=== PATIENT | male | born 1945 | race Caucasian/White ===

== ENCOUNTER 2020-04-23 05:55 | Outpatient (CLI) | payer MEDICARE, OTHER ==
--- NOTE | 2020-04-23 10:51 | RAD ---
EXAM: Chest 2 views: HISTORY: Preoperative radiograph COMPARISON: 08/20/2016 FINDINGS: There is a normal-sized cardiomediastinal silhouette. The patient is status post sternotomy. There is no evidence of consolidation, mass, or pleural effusion. The bones are unremarkable. IMPRESSION: No evidence of acute cardiopulmonary disease
[2020-04-23 14:06] LABS: Hemoglobin 13.6 g/dL (14.0-18.0); Mean Corpuscular HGB CONC 33.2 g/dL (32.0-36.0); Mean Corpuscular Hemoglobin 31.4 pg (27.0-31.0); Mean Corpuscular Volume 94.6 fL (78.0-98.0); Mean Platelet Volume 9.5 fL (7.4-10.4); Platelet Count 156 thou/uL (130-400); RBC Distribution Width 12.4 % (11.5-14.5); Red Blood Cell (RBC) Count 4.34 mill/uL (4.70-6.10); White Blood Cell (WBC) Count 7.5 thou/uL (4.8-10.8)
[2020-04-23 14:15] LABS: PTT 32.5 sec (22.9-36.1); Prothrombin Time 13.3 sec (12.0-14.7)
[2020-04-23 14:21] LABS: Anion Gap 10 mmol/L (10-20); BUN (Urea Nitrogen) 17 mg/dL (8.4-25.7); Calc. Creatinine Clearance 0 mL/min (70-130); Calcium 8.9 mg/dL (7.8-10.44); Carbon Dioxide 27 mmol/L (23-31); Chloride 105 mmol/L (98-107); Estimated GFR-MDRD 79; Glucose 89 mg/dL (83-110); Potassium 4.7 mmol/L (3.5-5.1); Sodium 137 mmol/L (136-145)
[2020-04-23 14:38] LABS: Bacteria/HPF None Seen HPF (None Seen); Bilirubin Negative (Negative); Blood, Urine Negative (Negative); Clarity Clear (Clear); Glucose, Urine (Dipstick) Normal (Negative); Leukocyte Negative Leu/uL (Negative); Nitrite Negative (Negative); Protein, Urine (Dipstick) Negative (Neg-Trace); RBC/HPF 0-3 HPF (0-3); Squamous Epithelial None Seen HPF (0-3); Urobilinogen Normal mg/dL (Less than 2); WBC/HPF 0-3 HPF (0-3)
[2020-04-24 13:46] LABS: SARS-CoV-2 MS2 Positive; SARS-CoV-2 N Gene Negative; SARS-CoV-2 S Gene Negative; SARS-CoV-2 orf1ab Negative
== END 2020-04-23 05:56 | disposition home or self-care (01) ==
LOC: LABBT 05:55
PROVIDERS: ATTEND Urology
DX: Z01.812 Encounter for preprocedural laboratory examination (principal); Z11.59 Encounter for screening for other viral diseases; Z12.5 Encounter for screening for malignant neoplasm of prostate; N43.3 Hydrocele, unspecified; N13.8 Other obstructive and reflux uropathy; N40.1 Benign prostatic hyperplasia with lower urinary tract symptoms; R39.14 Feeling of incomplete bladder emptying; I35.1 Nonrheumatic aortic (valve) insufficiency
CPT/HCPCS: 71046; 80048; 81001; 85027; 85610; 85730; 87086; U0003; 87635; 93005; 93010

== ENCOUNTER 2020-04-26 07:59 | Day surgery (SDC) | payer MEDICARE, OTHER ==
[2020-04-20 11:02] VITALS: BMI 25.5
[2020-04-26] MEDS ORDERED: Dexamethasone 20 MG/5 ML VIAL ONE (10:20)
[2020-04-26] MEDS ORDERED: EPHEDRINE 25 MG/5 ML SYRINGE ONE (10:20)
[2020-04-26] MEDS ORDERED: Ondansetron PF 4 MG/2 ML Vial ONE (10:20)
[2020-04-26] MEDS ORDERED: Lidocaine 1% PF 5 ML VIAL ONE (10:20)
[2020-04-26] MEDS ORDERED: PROPOFOL 200 MG/20 ML VIAL ONE (10:20)
[2020-04-26] MEDS ORDERED: Bupivacaine 0.25% HCL 30 ML VIAL ONE (10:23)
[2020-04-26] MEDS ORDERED: Lidocaine 1% w/Epinephrine 1:100K 20 ML VIAL ONE (10:23)
[2020-04-26] MEDS ORDERED: Fentanyl 100 MCG/2 ML VIAL ONE (10:28)
--- NOTE | 2020-04-26 13:29 | OP ---
DATE OF PROCEDURE: 04/26/2020 SERVICE: Urology. PREOPERATIVE DIAGNOSIS: Left hydrocele. POSTOPERATIVE DIAGNOSIS: Left hydrocele. PROCEDURE PERFORMED: Left hydrocelectomy in the Jaboulay fashion. INDICATIONS FOR PROCEDURE: Mr. Cornejo is a 74-year-old white male, who presented to me with a bothersome left hydrocele. Ultrasound did not show any underlying abnormalities and this did appear to be a noncommunicating hydrocele. After discussion of risks and benefits, he wished to proceed forward with the hydrocelectomy. DESCRIPTION OF PROCEDURE: After identification of armband and verification of consent, the patient was brought back to the operating room, where he underwent general anesthesia with an LMA. He was then left in the supine position and prepped and draped in usual sterile fashion. After appropriate time-out, an incision was made along one of the scrotal folds on the left anterior scrotum toward the upper part of the scrotum. Dissection was carried through the dartos and external spermatic fascia using Bovie electrocautery and sharp dissection. The external and internal spermatic fascia were then dissected up to the tunica vaginalis. At this point, a dissection plane was made just outside the hydrocele sac circumferentially until approximately half the hydrocele was dissected. The hydrocele was then able to be delivered through the incision line and brought to the outside. The remainder of the surrounding tissues were then mobilized until the hydrocele sac and the cord were the only structures visible. The hydrocele sac was opened anteriorly with release of a large amount of straw-colored fluid. This was evacuated completely. There was no foul odor or turbulence to the fluid. There were 2 hydrocele pearls within the hydrocele sac, which were removed. The appendix testis was also removed and discarded. The hydrocele sac was then opened thoroughly and the testis did appear normal without any abnormalities. The epididymis also appeared normal. The redundant hydrocele sac was then excised using Bovie electrocautery taking care not to be too close to the testicle or spermatic cord or the epididymis. The remainder of the tunica vaginalis was then marsupialized on the posterior aspect of the testicle, taking care again not to place the sutures near the epididymis for pain. Meticulous hemostasis was performed along all the edges of the tunica vaginalis and inside the scrotum and to any area that appeared to be bleeding until there was complete hemostasis, nothing visibly oozing. The inferior aspect of the scrotum was then opened using a cutting current on the Bovie for a small incision and then a hemostat passed through to guide a Carlos drain into the scrotal space. The superior aspect of the Carlos drain was affixed to the inside of the spermatic fascia extremely small amount of tissue this could be pulled free later, but will prevent drain from falling out accidentally. The redundant drain was then excised on the exterior of the scrotum and a 3-0 nylon used to secure the drain. The scrotum was then copiously irrigated along with the testicle and a cord block performed with 0.25% Marcaine plain. The testis was then re-delivered back into the scrotum. The dartos and spermatic fascia were then closed using a 2-0 Vicryl in a running fashion. The skin was closed with a 4-0 Monocryl in a running fashion. The drain exit site and the incision were infiltrated with 0.25% Marcaine plain for a total of 20 mL used for both the cord block and all incisions. Dermabond was applied on the incision, and once dried, scrotal fluffs and a jockstrap were applied. The patient was then awakened and taken to PACU for recovery in stable condition. COMPLICATIONS: None. ESTIMATED BLOOD LOSS: Minimal. RETAINED TUBES AND DRAINS: 0.25-inch Carlos drain. SPECIMENS: Hydrocele sac. DISPOSITION: The patient will be discharged home and follow up with me in approximately 1 week for possible drain removal and postop check. Job ID: [id number]
== END 2020-04-26 13:42 | disposition home or self-care (01) ==
LOC: SDC 07:59
PROVIDERS: ATTEND Urology
PROC: 0VB70ZZ Excision of Left Tunica Vaginalis, Open Approach (ICD-10-PCS; principal; 2020-04-26)
DX: N43.3 Hydrocele, unspecified (principal); J44.9 Chronic obstructive pulmonary disease, unspecified; I10 Essential (primary) hypertension; E78.5 Hyperlipidemia, unspecified; G47.30 Sleep apnea, unspecified; N40.0 Benign prostatic hyperplasia without lower urinary tract symptoms; Z87.891 Personal history of nicotine dependence; Z79.82 Long term (current) use of aspirin; Z79.899 Other long term (current) drug therapy; Z95.2 Presence of prosthetic heart valve
CPT/HCPCS: 88302; J0690; J1100; J2001; J2405; J2704; J3010; S0020

== ENCOUNTER 2021-01-05 00:11 | Inpatient (IN) | payer MEDICARE, OTHER ==
[2021-01-05 00:28] LABS: Hemoglobin 13.2 g/dL (14.0-18.0); Mean Corpuscular Hemoglobin 31.6 pg (27.0-31.0); Mean Corpuscular Volume 98.9 fL (78.0-98.0); Mean Platelet Volume 9.1 fL (7.4-10.4); Platelet Count 192 thou/uL (130-400); RBC Distribution Width 12.4 % (11.5-14.5); Red Blood Cell (RBC) Count 4.18 mill/uL (4.70-6.10); White Blood Cell (WBC) Count 23.2 thou/uL (4.8-10.8)
[2021-01-05 00:32] LABS: INR-International Normal Ratio 1.4; Prothrombin Time 17.1 sec (12.0-14.7)
[2021-01-05 00:48] LABS: Band 2 % (5-11); Hypochromia SLIGHT = 6-15 cells (100X) (0-5/hpf); Lymphocytes 42 % (21-51); MDiff Complete? YES; Monocytes 7 % (0-10); Neutrophil 49 % (42-75); Platelet Morphology Comment Appears Adequate
[2021-01-05 00:59] LABS: ALT (SGPT) 33 U/L (8-55); AST (SGOT) 63 U/L (5-34); Albumin 3.3 g/dL (3.4-4.8); Alkaline Phosphatase 50 U/L (40-110); Anion Gap 26 mmol/L (10-20); BUN (Urea Nitrogen) 21 mg/dL (8.4-25.7); Bilirubin, Total 0.4 mg/dL (0.2-1.2); Calc. Creatinine Clearance 0 mL/min (70-130); Calcium 7.5 mg/dL (7.8-10.44); Carbon Dioxide 12 mmol/L (23-31); Chloride 106 mmol/L (98-107); Glucose 207 mg/dL (83-110); Protein, Total 6.3 g/dL (5.8-8.1); Sodium 139 mmol/L (136-145)
[2021-01-05] MEDS ORDERED: Sodium Bicarb 50 MEQ/50 ML Abboject 8.4% SYRINGE ONE (01:00)
[2021-01-05] MEDS ORDERED: Iopamidol 370 76% 50 ML VIAL FS ONE (01:00)
[2021-01-05] MEDS ORDERED: EPINEPHrine 1 MG/10 ML Abboject SYRINGE ONE (01:00)
[2021-01-05] MEDS ORDERED: Calcium Chloride 1 GM/10 ML Abboject SYRINGE ONE (01:00)
[2021-01-05] MEDS ORDERED: Iopamidol 370 76% 100 ML VIAL ONE (01:00)
[2021-01-05 01:13] LABS: CKMB 12.3 ng/mL (0-6.6)
[2021-01-05] MEDS ORDERED: Milk Of Magnesia 30 ML UDCUP PO PRN (01:48)
[2021-01-05] MEDS ORDERED: Morphine 2 MG/ML VIAL SLOW IVP PRN ×3 (01:48→03:00)
[2021-01-05] MEDS ORDERED: Acetaminophen/Codeine 30-300mg Tablet PO PRN (01:48)
[2021-01-05] MEDS ORDERED: Nitroglycerin 0.4 MG TAB (25 Tab Bottle) SL PRN (01:48)
[2021-01-05] MEDS ORDERED: Zolpidem Tartrate 5 MG TAB PO PRN (01:48)
[2021-01-05] MEDS ORDERED: Aspirin Chewable 81 MG TAB PO SCH ×2 (02:00→09:00)
[2021-01-05] MEDS ORDERED: Aggrastat 12.5 MG/250 ML 250 ML IVPB SCH ×2 (02:00)
[2021-01-05] MEDS ORDERED: Sodium Chloride 0.9% 1,000 ML IV SCH (02:00)
[2021-01-05 02:16] LABS: Base Excess (BEa) -11.2 mEq/L (-2.0 to +3.0); CO2 Tension 55.2 mmHg (35.0-45.0); Carboxyhemoglobin (COHb) 0.9 gm% (0.0-3.0); Hemoglobin (Hb) 12.6 g/dL (14.0-18.0); Potassium - ABG Lab 4.83 mmol/L (3.70-5.30)
[2021-01-05 02:27] LABS: O2 Tension (PaO2), arterial 45.3 mmHg (> 70.0); pH, Arterial 7.13 (7.35-7.45)
[2021-01-05 02:28] LABS: Puncture Site RBA
[2021-01-05 02:39] VITALS: BP 80/49
[2021-01-05] MEDS: Sodium Bicarb 50 MEQ/50 ML Abboject 8.4% SYRINGE ONE ×2 (02:43→02:55)
[2021-01-05] MEDS ORDERED: Propofol BOLUS 1,000 MG/100 ML VIAL IV PRN (03:00)
[2021-01-05] MEDS ORDERED: DISCONTINUE PREVIOUS NARCOTIC PAIN MEDICATIONS AND BENZODIAZEPINES FS SCH (03:00)
[2021-01-05] MEDS ORDERED: Amiodarone 450 MG, Admixture Fee 1 EACH in Dextrose 5% in Water 250 ML IVPB SCH (03:00)
[2021-01-05] MEDS ORDERED: Propofol 1,000 MG/100 ML VIAL IV PRN (03:00)
[2021-01-05] MEDS ORDERED: Fentanyl BOLUS 250 ML IVPB PRN (03:00)
[2021-01-05] MEDS ORDERED: Norepinephrine 8 MG/250 ML IVPB SCH (03:00)
[2021-01-05] MEDS ORDERED: Fentanyl CADD 100 ML IV SCH (03:00)
[2021-01-05] MEDS ORDERED: Sodium Bicarb 50 MEQ/50 ML Abboject 8.4% SYRINGE IVP SCH (03:00)
[2021-01-05] MEDS ORDERED: Lorazepam 2 MG/ML VIAL SLOW IVP PRN (03:00)
[2021-01-05 03:10] LABS: Anion Gap 23 mmol/L (10-20); BUN (Urea Nitrogen) 23 mg/dL (8.4-25.7); Calc. Creatinine Clearance 0 mL/min (70-130); Calcium 7.7 mg/dL (7.8-10.44); Carbon Dioxide 17 mmol/L (23-31); Chloride 104 mmol/L (98-107); Glucose 221 mg/dL (83-110); Potassium 4.9 mmol/L (3.5-5.1); Sodium 139 mmol/L (136-145)
[2021-01-05 03:22] LABS: Actual Bicarbonate (HCO3a) 15.8 mEq/L (22-28); Base Excess (BEa) -13.6 mEq/L (-2.0 to +3.0); CO2 Tension 51.7 mmHg (35.0-45.0); Calcium, Ionized (arterial) 1.02 mmol/L (1.12-1.30); Carboxyhemoglobin (COHb) 0.5 gm% (0.0-3.0); Potassium - ABG Lab 5.91 mmol/L (3.70-5.30)
[2021-01-05 03:37] LABS: Troponin I 272.168 ng/mL (< 0.028)
[2021-01-05 04:23] LABS: O2 Tension (PaO2), arterial 47.1 mmHg (> 70.0)
[2021-01-05 04:24] LABS: ALV-art Gradient 601.275 mmHg (0-20); Puncture Site Arterial Line
[2021-01-05 04:47] VITALS: TEMP 97.6
[2021-01-05 04:48] VITALS: BMI 23.3
[2021-01-05] MEDS ORDERED: Lisinopril 2.5 MG TAB PO SCH ×2 (09:00)
[2021-01-05] MEDS ORDERED: TICAGRELOR 90 MG TABLET PO SCH (09:00)
[2021-01-05] MEDS ORDERED: Metoprolol Tartrate 25 MG TAB PO SCH ×2 (09:00)
[2021-01-05] MEDS ORDERED: Atorvastatin Calcium 40 MG TAB PO SCH (21:00)
== END 2021-01-05 03:46 | disposition expired | DRG 247 ==
LOC: ERS 00:11 → SDC/OP 00:29 → CCU 00:51
PROVIDERS: ADMIT Internal Medicine Cardiovascular Disease; ATTEND Internal Medicine Cardiovascular Disease
PROC: 027034Z Dilation of Coronary Artery, One Artery with Drug-eluting Intraluminal Device, Percutaneous Approach (ICD-10-PCS; principal; 2021-01-05)
PROC: 02C03ZZ Extirpation of Matter from Coronary Artery, One Artery, Percutaneous Approach (ICD-10-PCS; 2021-01-05)
PROC: B2111ZZ Fluoroscopy of Multiple Coronary Arteries using Low Osmolar Contrast (ICD-10-PCS; 2021-01-05)
PROC: B2151ZZ Fluoroscopy of Left Heart using Low Osmolar Contrast (ICD-10-PCS; 2021-01-05)
PROC: 4A023N7 Measurement of Cardiac Sampling and Pressure, Left Heart, Percutaneous Approach (ICD-10-PCS; 2021-01-05)
PROC: 0BH17EZ Insertion of Endotracheal Airway into Trachea, Via Natural or Artificial Opening (ICD-10-PCS; 2021-01-05)
PROC: 3E033XZ Introduction of Vasopressor into Peripheral Vein, Percutaneous Approach (ICD-10-PCS; 2021-01-05)
PROC: 5A12012 Performance of Cardiac Output, Single, Manual (ICD-10-PCS; 2021-01-05)
PROC: 3E03317 Introduction of Other Thrombolytic into Peripheral Vein, Percutaneous Approach (ICD-10-PCS; 2021-01-05)
DX: I21.09 ST elevation (STEMI) myocardial infarction involving other coronary artery of anterior wall (principal); J44.9 Chronic obstructive pulmonary disease, unspecified; I50.9 Heart failure, unspecified; I49.01 Ventricular fibrillation; I46.2 Cardiac arrest due to underlying cardiac condition; I11.0 Hypertensive heart disease with heart failure; Z95.2 Presence of prosthetic heart valve; Z79.82 Long term (current) use of aspirin; Z79.899 Other long term (current) drug therapy; I46.9 Cardiac arrest, cause unspecified
CPT/HCPCS: 36415; 36600; 71045; 80053; 82553; 82805; 84484; 85025; 85347; 85610; 85730; 92933; 92950; 92977; 93005; 93010; 93458; 94003; 94760; 96365; 99152; 99153; C9602; J0171; Q9967